=== PATIENT | male | born 1955 | race African-American/Black ===

== ENCOUNTER 2016-07-16 12:26 | Emergency (ER) | payer MEDICARE ==
--- NOTE | ~2016-07-16 | EKG ---
PATIENT: PAYAM WISEMAN UNIT #: [id number] Ventricular Rate: 63 BPM Atrial Rate: 63 BPM P-R Interval: 166 ms QRS Duration: 76 ms Q-T Interval: 384 ms QTC Calculation(Bezet): 392 ms P Sparks: 47 degrees Calculated R Sparks: 51 degrees Calculated T Sparks: 26 degrees Diagnosis Line: Sinus rhythm with occasional Premature ventricular Diagnosis Line: complexes and Premature atrial complexes Diagnosis Line: Nonspecific ST abnormality Diagnosis Line: Abnormal ECG Diagnosis Line: When compared with ECG of 25-MAR-2014 14:59, Diagnosis Line: Premature ventricular complexes are now Present Diagnosis Line: Premature atrial complexes are now Present Diagnosis Line: Confirmed by MARISELA BAGLEY MD ([id number]) on 07/18/2016 Diagnosis Line: 7:28:44 AM INTERPRETING MD: YUDI KEENE
--- NOTE | ~2016-07-16 | CT2 ---
[facility] A Service of [facility] & [facility] RADIOLOGY TEXT RESULTS PATIENT: PAYAM WISEMAN LOCATION: [facility] : 53 UNIT #: [id number] AGE: [address]: Ira Nelson MD SEX: M ORDER DR: [id number] [facility] [address] [place], [place] [address] [id number] MR#: [id number] Acc #: [id number] NAME: PAYAM WISEMAN. : 1955 SEX: M STUDY DATE/TIME: 07/16/2016 16:45 UNIT: [facility] ROOM: STUDY DESCRIPTION: CT Abd and Pelv W Cont Attending Physician: Ira Nelson M.D. Ordering Physician: Ira Nelson M.D. Primary Care Physician: Cody Stover M.D. MEDICAL IMAGING REPORT This report is preliminary unless electronic signature is present EXAM CT abdomen and pelvis with IV contrast, 07/16/2016 HISTORY Abdomen pain and back pain, nausea and vomiting for [address] exam was performed with one or more of the following radiation dose reduction techniques: automatic exposure control, adjustment of mA and/or kV according to patient size, and iterative reconstruction. FINDINGS CT abdomen and pelvis was performed with IV contrast. CT ABDOMEN: Diffuse fatty infiltration of the liver. No hepatic mass. No biliary ductal dilatation. Gallbladder, spleen, left kidney, and adrenal glands are unremarkable. Incidental 2 cm cyst in the mid right kidney. Prominent collaterals in the splenic hilum and left upper abdomen, with apparent thrombosis of the splenic vein. There is a low-density well-circumscribed round mass at the tip of the pancreatic tail measuring 2.4 cm x 2.2 cm x 2 cm in AP, transverse and craniocaudal dimensions. This is unchanged in size compared to multiple prior CTs dating back to 11/10/2009 and is therefore considered benign, given its long stability. No pancreatic ductal dilatation. No ascites. No inflammatory stranding. No urinary obstruction or bowel obstruction. Normal appendix. No free fluid in the pelvis. Lower lumbar multilevel lumbar spinal fusion. The urinary bladder and prostate gland are unremarkable. IMPRESSION 1. No acute findings in the abdomen or pelvis. [facility]. [facility] A Service of [facility] & [facility] RADIOLOGY TEXT RESULTS PATIENT: PAYAM WISEMAN LOCATION: [facility] : 53 UNIT #: [id number] AGE: [address]: Ira Nelson MD SEX: M ORDER DR: 2. Fatty infiltration of the liver. 3. Chronic stable 2.4 cm well-circumscribed round mass at the tip of the pancreatic tail is unchanged compared to prior CTs dating back to 11/10/2009 and is considered benign given its long-term stability. 4. Normal appendix. Dictated by... Luca Loza M.D. THIS IS AN ELECTRONICALLY VERIFIED REPORT Luca Loza M.D. at 07/17/2016 10:46 PM FAMILIA/chetan TD: 07/17/2016 21:21 JOB #: [id number] MEDICAL IMAGING REPORT COPY
[~2016-07-16 12:26] MED LIST: BACLOFEN10 MG PO; BACLOFEN20 M1 PO; BENTYL20 MG PO; CLARITIN10 MG PO; COREG6.25 MG PO; ENDOCET 7.5-3251 TAB PO; FLONASE 0.05% N16 GM; GLUCOTROL PO; HCTZ PO; HUMALOG100 U/ML SUBQ; HYDROCODONE-APA1 T30 PO; IBUPROFEN PO; INSULIN PEN1 DIS.NDL SUBQ; LANTUS100 U/M1 SQ; LEVAQUIN PO; LISINOPRIL PO; LOPRESSOR PO; NEURONTIN PO; NEURONTIN800 MG PO; PERCOCET7.5 PO; PHENERGAN12.5 M1 PR; PHENERGAN25 MG PO; PRAVACHOL20 MG PO; PRAVASTATIN SOD20 MG; PRILOSEC PO; PROTONIX PO; STOOL SOFTENER; THERAPEUTIC VIT1 TA3 PO; VICODIN 5/500 T1 TAB PO; ZESTORETIC 20/11 TAB PO; ZOFRAN PO
[2016-07-16 13:38] LABS: URINE SOURCE CLEAN CATCH
[2016-07-16 13:48] LABS: BASOPHIL# 0.1 X10e3 (0-0.3); BASOPHIL% 1.1 % (0-2.5); EOSINOPHIL# 0.1 X10e3 (0-0.7); HEMATOCRIT 49.9 % (38.0-50.0); HEMOGLOBIN 16.7 gm/dL (13.0-16.0); LYMPHOCYTE# 1.7 X10e3 (1.0-3.5); LYMPHOCYTE% 36.8 % (17.0-45.0); MEAN CELL VOLUME 95.6 FL (83-96); MEAN CORPUSCULAR HGB CONC 33.5 g/dL (30-36); MEAN PLATELET VOLUME 9.2 FL (6.5-11.5); MONOCYTE# 0.3 X10e3 (0-1.0); NEUTROPHIL# 2.5 X10e3 (1.5-7.1); NEUTROPHIL% 53.1 % (40-75); PLATELET COUNT 158 X10e3 (140-420); RED BLOOD COUNT 5.22 X10e (3.90-5.60); RED CELL DISTRIBUTION WIDTH 12.5 % (11.0-15.5); WHITE BLOOD COUNT 4.7 X10e3 (4.0-10.5)
[2016-07-16 13:51] LABS: DIFF IND NO
[2016-07-16 13:58] LABS: URINE APPEARANCE CLEAR; URINE BILIRUBIN NEG (NEG); URINE BLOOD NEG (NEG); URINE COLOR YELLOW; URINE GLUCOSE NEG (NEG); URINE KETONE TRACE (NEG); URINE LEUKOCYTE ESTERASE NEG (NEG); URINE NITRATE NEG (NEG); URINE PROTEIN 1+ (NEG); URINE SPECIFIC GRAVITY 1.033 (1.003-1.035); URINE UROBILINOGEN 0.2 MG/DL (NEG)
[2016-07-16 14:00] LABS: URBCS1 AUWI 0-2 /[HPF] (0-2); URINE BACTERIA AUWI NEG (NEGATIVE); URINE SQUAMOUS EPITHELIAL CELL OCC /[HPF]; UWBCS1 AUWI 0-2 (0-5)
[2016-07-16 14:03] LABS: CULTURE INDICATED? NO
[2016-07-16 14:23] LABS: POC - CKMB <1.0 ng/mL (0.0-7.9); POC - TROPONIN <0.05 ng/mL (<=0.05)
[2016-07-16 14:35] LABS: ALBUMIN SERUM 4.4 g/dL (3.5-5.0); ALKALINE PHOSPHATASE 58 U/L (32-92); ALT (SGPT) 27 U/L (10-40); AMYLASE 11 U/L (0-46); AST (SGOT) 20 U/L (10-42); BILIRUBIN, DIRECT 0.1 mg/dL (0.0-0.2); BILIRUBIN,INDIRECT 0.2 mg/dL (0.0-0.9); BILIRUBIN,TOTAL 0.3 mg/dL (0.2-2.0); BLOOD UREA NITROGEN 9 mg/dL (9-23); BUN/CREATININE RATIO 8.18; CALCIUM SERUM 9.7 mg/dL (8.4-10.2); CARBON DIOXIDE 22 mmol/L (22-31); CHLORIDE 102 mmol/L (100-111); CREATININE SERUM 1.1 mg/dL (0.6-1.4); GLOM FILT RATE Estimated ABOVE60 mL/min (>60); GLUCOSE FASTING 114 mg/dL (70-110); LIPASE 13 U/L (22-51); POTASSIUM 4.1 mmol/L (3.5-5.1); PROTEIN TOTAL SERUM 7.9 g/dL (6.0-8.3); SODIUM 136 mmol/L (135-145)
[2016-08-09] MEDS ORDERED: OMEPRAZOLE20 M1 PO (14:00)
[2016-08-09] MEDS ORDERED: CARVEDILOL25 M1 PO (14:00)
[2016-08-09] MEDS ORDERED: AMLODIPINE BESY10 MG PO (14:01)
[2016-08-09] MEDS ORDERED: FLOMAX0.4 M1 PO (14:01)
[2016-08-09] MEDS ORDERED: LOVAZA1 GM PO (14:02)
[2016-08-09] MEDS ORDERED: GLUCOPHAGE500 MG PO (14:02)
[2016-08-09] MEDS ORDERED: BACLOFEN20 M1 PO (14:03)
[2016-08-09] MEDS ORDERED: OXYCODONE-ACET1 EAC1 PO (14:03)
[2016-08-09] MEDS ORDERED: CRESTOR PO (14:04)
[2016-08-09] MEDS ORDERED: AMITIZA24 MCG PO (14:05)
[2016-08-09] MEDS ORDERED: LANTUS SOL100 UNIT/1 SUBQ (14:06)
[2016-08-09] MEDS ORDERED: NOVOLOG FL100 UNIT/1 SUBQ (14:07)
[2016-08-09] MEDS ORDERED: ALLERGY RELIEF180 MG PO (14:08)
== END 2016-07-16 18:50 | disposition home or self-care (01) ==
LOC: CED 12:26
PROVIDERS: Emergency Medicine
DX: R10.9 Unspecified abdominal pain (principal); F17.200 Nicotine dependence, unspecified, uncomplicated; K21.9 Gastro-esophageal reflux disease without esophagitis; K85.90 Acute pancreatitis without necrosis or infection, unspecified; E11.9 Type 2 diabetes mellitus without complications; I10 Essential (primary) hypertension
CPT/HCPCS: 36415; 74177; 80048; 80076; 81003; 82150; 82553; 82947; 83690; 84484; 85025; 93005; 96374; 96375; 99284; C9113; J2270; Q9967

== ENCOUNTER → 2016-08-10 | Day surgery (SDC) | payer MEDICARE ==
[~2016-08-10] MED LIST changes: +ALLERGY RELIEF180 MG PO; +AMITIZA24 MCG PO; +AMLODIPINE BESY10 MG PO; +CARVEDILOL25 M1 PO; +CRESTOR PO; +FLOMAX0.4 M1 PO; +GLUCOPHAGE500 MG PO; +LANTUS SOL100 UNIT/1 SUBQ; +LOVAZA1 GM PO; +NOVOLOG FL100 UNIT/1 SUBQ; +OMEPRAZOLE20 M1 PO; +OXYCODONE-ACET1 EAC1 PO
--- NOTE | ~2016-08-10 | OR ---
Unit #: [id number] #: [id number] Patient: PAYAM WISEMAN [id number] [address] [place], [place] [address] [id number] O MR#: [id number] NAME: PAYAM WISEMAN ROOM: Date of Procedure: 08/10/2016 Admission Date: 08/10/2016 Surgeon: Sawyer Grijalva M.D. : 1955 Attending Physician: Sawyer Grijalva M.D. Referring Physician: Sawyer Grijalva M.D. Primary Care Physician: Cody Stover M.D. OPERATIVE REPORT PREOPERATIVE DIAGNOSES The patient has presented with a history of dyspepsia, weight loss, and upper abdominal pain. He had a CAT scan that did not show any pancreatic mass. In fact, there was some area in the pancreatic tail, which is stable for many years. He has come for elective upper endoscopy and a screening colonoscopy. PROCEDURES PERFORMED Upper gastrointestinal endoscopy and biopsy as well as colonoscopy with polypectomy. POSTOPERATIVE DIAGNOSES For upper endoscopy: The patient had mild prepyloric antral erosive gastritis. Otherwise, normal examination up to third part of duodenum. A biopsy was obtained from the antrum for CLOtest. For colonoscopy: There were multiple polyps. A total of eight polyps were seen. There were four polyps in the cecum, two of which were removed using snare polypectomy, and two were fulgurated with snare tip. There was one polyp in the sigmoid colon, two polyps in the descending colon, which were fulgurated, and one polyp in the ascending colon. The polyps ranged in size from 5 mm to a centimeter each. All the polyps that were removed were sent for histology. The patient also had mild diverticulosis. RECOMMENDATIONS The patient will be followed up in the office in a couple of months' time along with the results of CLOtest as well as polyp histology. SEDATION USED MAC. DESCRIPTION OF PROCEDURE Following detailed explanation of potential risks and complications of an upper endoscopy and a colonoscopy, namely perforation, bleeding, and complication related to sedation, the patient was brought to GI lab and laid in the left lateral decubitus position. Lubricated tip of the Olympus video upper endoscope was passed through the bite block into the proximal esophagus under direct vision. The entire esophageal mucosa was examined and appeared normal. Z-line was nicely demarcated, there being no esophagitis or hiatus hernia. The scope was then advanced into the gastric cavity and the latter was insufflated. Mucosa of the fundus, body, and antrum was examined. The patient was noted to have mild Unit #: [id number] #: [id number] Patient: PAYAM WISEMAN prepyloric antral erythema, erosions indicating antral gastritis. Pylorus was intubated with visualization of the normal duodenal bulb and second and third part of the duodenum. Upon withdrawal and retroflexion, incisura, cardia, and greater curve was examined and no additional findings were noted. A biopsy was obtained from the antrum for CLOtest. The scope was then withdrawn in the distal esophagus. Entire esophageal mucosa was examined all the way up to pharynx. No additional findings were noted. The examination table was then turned by 180 degrees and the patient positioned for a colonoscopy. A digital rectal examination was performed, which was normal. Lubricated tip of the Olympus video colonoscope was inserted through the anus and advanced under direct vision. Scant small diverticula were noticed in this area. The scope tip was then navigated all the way up to cecum with visualization of the ileocecal valve and the appendiceal orifice. Preparation was excellent with good visualization and photodocumentation was obtained. Last several inches of the terminal ileum were also visualized after intubation of the ileocecal valve and appeared normal. Successive segments of the colonic mucosa were examined upon withdrawal. The patient was noted to have two sessile polyps in the cecum, these were 8 mm and 1 cm each. Both were removed using snare cautery polypectomy. Two smaller diminutive polyps were also fulgurated using snare cautery tip. A fifth polyp was seen in the ascending colon, which was about 6 mm in size and was removed using snare polypectomy. The patient had two additional polyps in the transverse colon and one in the sigmoid colon. All of which were removed using snare polypectomy. Retrieved polyps were sent for histology. Other than the scant diverticula, no other abnormalities were noted. No hemorrhoids were seen at the anal verge. The scope was then withdrawn and the patient returned to recovery area. He tolerated the procedure without any postprocedure complications. Dictated by.Efren Cary TD: 08/10/2016 22:14 JOB #: [id number] OPERATIVE REPORT Page 1 of 1 X Sawyer Grijalva MD PROCEDURE OPERATIVE NOTE
== END | disposition home or self-care (01) ==
LOC: COPS 08:17
DX: D12.0 Benign neoplasm of cecum (principal); D12.2 Benign neoplasm of ascending colon; K29.70 Gastritis, unspecified, without bleeding; K57.30 Diverticulosis of large intestine without perforation or abscess without bleeding; K21.9 Gastro-esophageal reflux disease without esophagitis; I10 Essential (primary) hypertension; E11.9 Type 2 diabetes mellitus without complications; G89.29 Other chronic pain; M54.9 Dorsalgia, unspecified; F17.210 Nicotine dependence, cigarettes, uncomplicated; Z88.8 Allergy status to other drugs, medicaments and biological substances; Z79.2 Long term (current) use of antibiotics; Z79.891 Long term (current) use of opiate analgesic; Z79.899 Other long term (current) drug therapy; Z98.890 Other specified postprocedural states
CPT/HCPCS: 82947; 87077; 88305; J2250

== ENCOUNTER 2016-10-24 17:43 | Emergency (ER) | payer MEDICARE ==
[2016-10-24 20:09] LABS: BASOPHIL# 0.1 X10e3 (0-0.3); BASOPHIL% 1.4 % (0-2.5); EOSINOPHIL# 0.1 X10e3 (0-0.7); EOSINOPHIL% 1.8 % (0.0-7.0); HEMATOCRIT 47.3 % (38.0-50.0); HEMOGLOBIN 15.7 gm/dL (13.0-16.0); MEAN CELL VOLUME 98.1 FL (83-96); MEAN CORPUSCULAR HEMOGLOBIN 32.5 PG (28-34); MEAN CORPUSCULAR HGB CONC 33.2 g/dL (30-36); MEAN PLATELET VOLUME 8.5 FL (6.5-11.5); MONOCYTE# 0.6 X10e3 (0-1.0); MONOCYTE% 8.5 % (3.0-12.0); NEUTROPHIL% 58.3 % (40-75); PLATELET COUNT 177 X10e3 (140-420); RED BLOOD COUNT 4.82 X10e (3.90-5.60); RED CELL DISTRIBUTION WIDTH 14.1 % (11.0-15.5); WHITE BLOOD COUNT 6.8 X10e3 (4.0-10.5)
[2016-10-24 20:10] LABS: DIFF IND NO
[2016-10-24 20:43] LABS: ALBUMIN SERUM 4.5 g/dL (3.5-5.0); BILIRUBIN, DIRECT 0.1 mg/dL (0.0-0.2); BILIRUBIN,INDIRECT 0.3 mg/dL (0.0-0.9); BILIRUBIN,TOTAL 0.4 mg/dL (0.2-2.0); BUN/CREATININE RATIO 12.3; CALCIUM SERUM 9.5 mg/dL (8.4-10.2); CREATININE SERUM 1.3 mg/dL (0.6-1.4); GLOM FILT RATE Estimated 67.3 mL/min (>60); POTASSIUM 4.2 mmol/L (3.5-5.1); PROTEIN TOTAL SERUM 8.1 g/dL (6.0-8.3)
== END 2016-10-24 20:25 | disposition left against medical advice (07) ==
LOC: CED 17:43
DX: Z53.21 Procedure and treatment not carried out due to patient leaving prior to being seen by health care provider (principal)
CPT/HCPCS: 80048; 80076; 82150; 83690; 85025

== ENCOUNTER → 2016-11-08 | Outpatient (CLI) | payer MEDICARE ==
--- NOTE | ~2016-11-08 | NM22 ---
[facility] A Service of [facility] RADIOLOGY TEXT RESULTS PATIENT: PAYAM WISEMAN LOCATION: [facility] : 51 UNIT #: [id number] AGE: [address]: ESTELLE ELDRIDGE APRN SEX: M ORDER DR: [id number] [facility] [address] [place], [place] [address] [id number] O MR#: [id number] Acc #: [id number] NAME: PAYAM WISEMAN. : 1955 SEX: M STUDY DATE/TIME: 11/08/2016 7:50 UNIT: [facility] ROOM: STUDY DESCRIPTION: STEPAN Hepatobiliary W GB Pharm Attending Physician: Estelle Eldridge Aprn Referring Physician: Estelle Eldridge Aprn Ordering Physician: Estelle Eldridge Aprn Primary Care Physician: Cody Stover M.D. MEDICAL IMAGING REPORT This report is preliminary unless electronic signature is present EXAM Hepatobiliary scan. INDICATIONS Nausea and vomiting and generalized abdominal pain for the past 6 months. PROCEDURE Patient was administered 5.7 mCi technetium labeled Choletec. Imaging of the upper abdomen was performed for 60 minutes then patient was administered 1.8 mcg of Kinevac IV per protocol. COMPARISON None. FINDINGS Liver shows symmetric extraction and excretion of radiotracer. The gallbladder fills by 15 minutes. The ejection fraction is 15% at 30 minutes. IMPRESSION 1. No evidence for cystic duct obstruction. 2. Gallbladder ejection fraction of 15% at 30 minutes suggesting gallbladder dysfunction. Dictated by... Wisam Tracy M.D. THIS IS AN ELECTRONICALLY VERIFIED REPORT Wisam Tracy M.D. at 11/09/2016 7:12 AM LENNY/shweta TD: 11/08/2016 16:47 [facility] A Service of [facility] RADIOLOGY TEXT RESULTS PATIENT: PAYAM WISEMAN LOCATION: [facility] : 51 UNIT #: [id number] AGE: [address]: ESTELLE ELDRIDGE APRN SEX: M ORDER DR: JOB #: [id number] MEDICAL IMAGING REPORT Page 1 of 1 COPY
== END | disposition home or self-care (01) ==
LOC: CNUC 06:01
DX: R10.13 Epigastric pain (principal); R11.0 Nausea
CPT/HCPCS: 78227; A9537; J2805

== ENCOUNTER → 2016-11-14 | Outpatient (CLI) | payer MEDICARE ==
--- NOTE | ~2016-11-14 | NM19 ---
[facility] A Service of [facility] & [facility] RADIOLOGY TEXT RESULTS PATIENT: PAYAM WISEMAN LOCATION: [facility] : 51 UNIT #: [id number] AGE: [address]: ESTELLE ELDRIDGE APRN SEX: M ORDER DR: [id number] [facility] [address] [place], [place] [address] [id number] O MR#: [id number] Acc #: [id number] NAME: PAYAM WISEMAN : 1955 SEX: M STUDY DATE/TIME: 11/14/2016 7:37 UNIT: [facility] ROOM: STUDY DESCRIPTION: ID Gastric Emptying Study Attending Physician: Estelle Eldridge Aprn Referring Physician: Estelle Eldridge Aprn Ordering Physician: Estelle Eldridge Aprn Primary Care Physician: Cody Stover M.D. MEDICAL IMAGING REPORT This report is preliminary unless electronic signature is present EXAM Gastric emptying study INDICATION Abdominal pain. Loss of appetite. Uncontrolled blood sugar. Generalized abdomen pain for 6 months. FINDINGS The patient was given 521 McCi of Tc99m sulfur colloid mixed with eggs and water. Activity remaining in the stomach was measured over time. At 60 minutes, the stomach was 20% empty, at 120 minutes it was 43% empty and at 240 minutes it was 76% empty. IMPRESSION Delayed gastric emptying. The stomach was only 43% empty at 60 minutes and 76% empty at 240 minutes. Dictated by... Riley Farias M.D. THIS IS AN ELECTRONICALLY VERIFIED REPORT Riley Farias M.D. at 11/15/2016 10:23 AM FERNIE/kapil TD: 11/15/2016 08:14 JOB #: [id number] MEDICAL IMAGING REPORT Page 1 of 1 COPY
== END | disposition home or self-care (01) ==
LOC: CNUC 07:00
DX: R10.13 Epigastric pain (principal); R68.81 Early satiety; R11.0 Nausea; K30 Functional dyspepsia
CPT/HCPCS: 78264; A9541